=== PATIENT | female | born 1980 | race Caucasian/White ===

== ENCOUNTER 2023-06-28 18:46 | Emergency (ER) | payer BC, SELFPAY ==
[2023-06-28 18:50] VITALS: BP 139/85
--- NOTE | 2023-06-28 20:02 | ED.GENMED ---
History of Present Illness
General
Chief Complaint: Skin Problem
Source: patient
Exam Limitations: none
Time Seen by Provider: 06/28/23 19:20
Nursing documentation reviewed up to this point in time: agreed with
Travel History
Have you had any contact with someone who has COVID-19?: No
Do you have any symptoms of coronavirus? Fever > 100 degrees, chills, cough, shortness of breath, sore throat, loss of taste or smell, muscle aches, or headache?: No
History of Present Illness
History of Present Illness:
Pleasant 43-year-old female that presents from urgent care. They sent her in because they thought the tip of her nose was discolored, and appeared cold to the provider. Patient was seen in urgent care on Friday and started on Augmentin for
presumed strep throat. Her daughter was diagnosed with strep throat prior to that. She took several doses and then felt the symptoms. She reports no other complaints. She has absolutely no sore throat or throat pain.
Review of Systems
Review of Systems
Allergies reviewed?: Yes
Other source history: family
All Other Systems: ROS reviewed and negative except as documented in HPI and ROS
Constitutional: Reports no symptoms
EENT: Denies tearing, sore throat, mouth pain or other
Respiratory: Denies cough, hemoptysis or trouble breathing
Cardiac: Denies no symptoms or chest pain
ABD/GI: Reports no symptoms
: Reports no symptoms
Musculoskeletal: Reports no symptoms
Skin: Reports no symptoms
Neurological: Reports no symptoms
Endocrine: Reports no symptoms
Hematologic/Lymphatic: Reports no symptoms
Psychiatric: Reports no symptoms
Phy Exam
General Physical Exam
General Presentation: well appearing and no apparent distress
General age: appears stated age
General Skin: warm and dry
General Habitus: normal
General Mental: alert
Pulmonary Exam
Pulmonary Exam: no respiratory distress
Musculoskeletal Exam
Musculoskeletal Exam: full ROM and no edema
Skin Exam
Skin Exam: normal color, warm/dry, no rash and no petechia
Psychiatric Exam
Psychiatric Exam: normal mood/affect
Course
Vital Signs
Initial and Last Documented VS:
Initial Vital Signs
Temp Pulse Resp BP Pulse Ox
98.1 F 65 16 139/85 100
06/28/23 18:50 06/28/23 18:50 06/28/23 18:50 06/28/23 18:50 06/28/23 18:50
Last Documented Vital Signs
Temp Pulse Resp BP Pulse Ox
98.1 F 65 16 139/85 100
06/28/23 18:50 06/28/23 18:50 06/28/23 18:50 06/28/23 18:50 06/28/23 18:50
*Pulse Oximetry
Patient hypoxic: no
*Critical Care Note
Total Time (30-74mins, 75-104mins- exclusive of procedures): Not Applicable
Patient Management
Social determinants of health affecting care: Strong social support
Update Note
Update Note:
On exam, skin of the face, specifically nose is normal and normothermic. There is good capillary refill in the nose. Normal color. No evidence of rash. Internal nasal exam is completely normal. There is a very slight area underneath the nose on
the rhinal columella that is slightly larger on the right than it is the left. Patient has no pain. There is no herpetic jerome. There is no evidence for herpes zoster ophthalmicus. Fluorescein eye exam was completely negative with no uptake
noted. I do not feel that the nose is colder than the rest of her face.
We did discuss early shingles. had shingles several years ago that started on the tip of his nose. They understand but to be aware of. They have good follow-up. Should she have symptoms, she will return to the ER or go to her family
doctor for treatment.
ED Attending Note
-
Portions of this chart may have been created with voice recognition software.� Occasional wrong word or��sound alike� substitutions may have occurred due to the inherent limitations of voice recognition software.
Discharge Plan
Departure
Patient Disposition: Home (Routine Discharge)
Date of Disposition: 06/28/23
Time of Disposition: 20:10
Patient with high blood pressure during this ER visit?: No
Discharge Problem:
paresthesia nose
Instructions: Shingles (DC)
Referrals:
[facility] [Outside]
Activity Restrictions/Additional Instructions:
I gave you instructions on shingles. I do not feel that you have shingles at this time. If you should develop any of the symptoms we discussed, please return to your family doctor or the ER for treatment.
It was a pleasure meeting you and taking part in your care. We hope for your continued healing and wellness.
Please read discharge instructions in their entirety. However, they are for general education and may not describe your exact diagnosis at discharge. Information on your ER visit and medical conditions were discussed with you along with appropriate
follow up information...
If indicated, please take your medications as instructed and indicated on discharge paperwork.
Please schedule a follow up appointment as directed. Call to schedule an appointment
Please return to the emergency department with ANY change in, persisting, or worsening of symptoms. If any of your symptoms do not improve, or persist, or become more severe within 6-12 hours, please return to the emergency department for further
care.
Please return to the emergency department if you develop a headache, neck pain/stiffness, fever greater than 100.4F, chest pain, shortness of breath, persistent nausea, vomiting, slurred speech, difficulty walking, numbness/tingling, weakness, signs
of infection or any other symptoms that are worrisome to you.
If you have any questions or concerns please do not hesitate to call the Hospital at or E-mail me directly at [email or web address]
Interventions
Interventions:
*Risk Screen - Suicide Last Done: 06/28/23 18:50
*General Assessment Last Done: 06/28/23 18:50
*Neglect/Abuse Screening Last Done: 06/28/23 18:50
*ED COVID-19 Vaccine History Last Done: 06/28/23 18:50
Discharge Date and Time
Print Language: AMHARIC
== END 2023-06-28 20:20 | disposition home or self-care (01) ==
LOC: EMR 18:46
PROVIDERS: EMERGENCY PHYSICIAN Student in an Organized Health Care Education/Training Program
DX: R20.2 Paresthesia of skin (principal)
CPT/HCPCS: 99283